=== PATIENT | female | born 1980 | race Caucasian/White ===

== ENCOUNTER 2022-03-11 08:03 | Emergency (ER) | payer BC, SELFPAY ==
[2022-03-11 08:12] VITALS: BP 131/78; PULSE 81; RESP 16; TEMP 36.8; O2SAT 100
--- NOTE | 2022-03-11 08:16 | ED.URI ---
HPI - URI/Sore Throat General Chief Complaint: Upper Respiratory Infection Stated Complaint: sore throat, congestion Time Seen by Provider: 03/11/22 08:16 Source: patient, RN notes reviewed and old records reviewed Mode of arrival: ambulatory Limitations: no limitations History of Present Illness HPI Narrative: 42 year old female who presents to [facility] care stating she had virtual visit with her doctor 2 weeks ago for nasal congestion with green drainage, cough with some expectoration of greenish phlegm and was prescribed nasal spray which did help for about 3 days then symptoms have returned. Patient reports today that she has a sore throat, is hoarse, greenish nasal drainage, ear pressure, cough with also some greenish phlegm. Patient reports that cough is worse at night and she is having difficulty getting any rest, She has been using the nasal spray and also has been taking DayQuil and NyQuil and taking Cortney. Patient has had COVID vaccinations, denies any acute fevers, chills or sweats, denies any body aches. MD elicited complaint: cough, sore throat, rhinorrhea, nasal congestion and other (ear pressure) Onset (ago): week(s) (symptoms greater than 2 weeks) Consistency: progressively worsening Description of mucous: green Related Data Home Medications Medication Instructions Recorded Confirmed ipratropium bromide 2 spray INTRANASAL DAILY 03/11/22 03/11/22 Allergies Allergy/AdvReac Type Severity Reaction Status Date / Time amoxicillin AdvReac Other Verified 03/11/22 08:21 Review of Systems Review of Systems: CONSTITUTIONAL: Denies fever, chills, or sweats. EYES: Denies visual changes, redness, or discharge. ENT: Positive rhinorrhea, congestion, sore throat, and ear pressure. CARDIOVASCULAR: Denies chest pain, palpitations, or edema. RESPIRATORY: Positive cough no dyspnea. GASTROINTESTINAL: Denies abdominal pain, nausea, vomiting, or diarrhea. GENITOURINARY: Denies dysuria or hematuria. SKIN: Denies rash or itching. MUSCULOSKELETAL: Denies back pain, joint pain, or myalgia. NEUROLOGIC: Denies headache, numbness, or weakness. PSYCHIATRIC: Denies anxiety or depression. All systems reviewed & are unremarkable except as noted in HPI and below PMFSH Past Medical History Medical History (Updated 03/12/22 @ 08:03 by Lety Samuel NP) Obesity Surgical History Surgical History (Updated 03/12/22 @ 08:00 by Lety Samuel NP) Previous section X2 S/P foot surgery, left X2 for plantar fasciitis Family History Family History (Updated 03/12/22 @ 08:02 by Lety Samuel NP) Father Hypertension Brain aneurysm Mother Hypertension Sibling Kidney stones Grandparent Abdominal aneurysm Social History Social History (Updated 03/12/22 @ 08:03 by Lety Samuel NP) Smoking status: Never smoker Alcohol intake: current Alcohol use details: rare social Substance use: never Living arrangements: with family Gender identity (if verbalized by the patient): Female Comments At time of signature, agree with nursing past medical, surgical, social and family history. There is no relevant family history pertinent to the presenting complaint Exam Narrative: GENERAL: Well-appearing, well-nourished, and in no acute distress. HEAD: Normocephalic, atraumatic. EYES: PERRLA and EOMI. ENT: Nares red with greenish tinged rhinorrhea no epistaxis. Mucous membranes moist.TM's normal with dull light reflex, throat red with no tonsil swelling or lesions post nasal drainage noted NECK: Supple.no lymphadenopathy CHEST: Clear to auscultation. No respiratory distress.productive cough SAO2 100% on room air, no tachypnea HEART: Regular rate and rhythm. No murmur heard. Normal peripheral pulses. ABDOMEN: Soft, nontender, nondistended, normal active bowel sounds. EXTREMITIES: Normal range of motion. No edema. SKIN: Warm, dry, no rash. NEURO: No focal deficits. Alert and oriented x3. Course Course
== END 2022-03-11 08:43 | disposition home or self-care (01) ==
PROVIDERS: Emergency Provider Registered Nurse
DX: J32.9 Chronic sinusitis, unspecified (principal); R05.9 Cough, unspecified
CPT/HCPCS: 99213; G0463

== ENCOUNTER 2022-03-17 08:43 | Emergency (ER) | payer BC, SELFPAY ==
[2022-03-17 08:48] VITALS: BP 111/79; PULSE 82; RESP 16; TEMP 36.4; O2SAT 100
--- NOTE | 2022-03-17 08:55 | ED.URI ---
HPI - URI/Sore Throat General Chief Complaint: Upper Respiratory Infection Stated Complaint: cough and congestion Time Seen by Provider: 03/17/22 09:00 Source: patient and RN notes reviewed Mode of arrival: ambulatory Limitations: no limitations History of Present Illness HPI Narrative: 42-year-old female presents with concern for ongoing cough, sinus drainage. She reports the cough is dry and persistent. She reports nasal drainage is constant, turn from green to clear after taking the antibiotic. Reports she is on day 7 of the antibiotic, however she is itching. She also reports the guaifenesin with codeine that she was previously prescribed keeps her awake at night. She has not taken it consistently because of this. She reports she continues to use Cortney daily and is using the ipratropium nasal spray as directed. She denies fever, body aches, chills, sweats, shortness of breath. She reports a total of 6 weeks of symptoms. MD elicited complaint: cough and sore throat Related Data Home Medications Medication Instructions Recorded Confirmed ipratropium bromide 2 spray INTRANASAL DAILY 03/11/22 03/17/22 Allergies Allergy/AdvReac Type Severity Reaction Status Date / Time amoxicillin [From Augmentin] AdvReac YEAST Verified 03/17/22 09:10 INFECTION clavulanic acid AdvReac YEAST Verified 03/17/22 09:10 [From Augmentin] INFECTION Review of Systems Review of Systems: CONSTITUTIONAL: Denies malaise, chills, sweats, or fever. EYES: Denies visual changes, redness, or discharge. ENT: Reports rhinorrhea, congestion, postnasal drainage. Denies sinus pain, otalgia and sore throat. CARDIOVASCULAR: Denies chest pain, palpitations, or edema. RESPIRATORY: Reports persistent dry cough. Denies dyspnea. GASTROINTESTINAL: Denies abdominal pain, nausea, vomiting, diarrhea SKIN: Denies rash or itching. MUSCULOSKELETAL: Denies myalgia. NEUROLOGIC: Denies headache. All systems reviewed & are unremarkable except as noted in HPI and below PMFSH Past Medical History Medical History (Updated 03/17/22 @ 09:10 by Kristel Hung NP) Obesity Surgical History Surgical History (Updated 03/12/22 @ 08:00 by Lety Samuel NP) Previous section X2 S/P foot surgery, left X2 for plantar fasciitis Family History Family History (Updated 03/12/22 @ 08:02 by Lety Samuel NP) Father Hypertension Brain aneurysm Mother Hypertension Sibling Kidney stones Grandparent Abdominal aneurysm Social History Social History (Updated 03/12/22 @ 08:03 by Lety Samuel NP) Smoking status: Never smoker Alcohol intake: current Alcohol use details: rare social Substance use: never Gender identity (if verbalized by the patient): Female Comments At time of signature, agree with nursing past medical, surgical, social and family history. There is no relevant family history pertinent to the presenting complaint Exam Narrative: GENERAL: Well-appearing, well-nourished, and in no acute distress. HEAD: Normocephalic EYES: PERRLA, conjunctivae clear ENT: Nares clear, turbinates edematous and erythematous, clear discharge. Mucous membranes moist. TM pearly vital with sharp light reflex bilaterally; no tragal tenderness. Oropharynx not erythematous without lesions. Tonsils not enlarged and without exudate, no drooling, no hoarseness, no trismus, uvula midline. NECK: Supple. No lymphadenopathy CHEST: Clear to auscultation, breath sounds equal. No wheezing, rhonchi, rales, or stridor. No respiratory distress, speaks in full sentences. Continuous dry cough noted HEART: Regular rate and rhythm. No murmur heard. SKIN: Warm, dry, no rash. NEURO: Alert and oriented x3. PSYCH: Normal mood and affect Course Course Emergency Course: Patient is aware of diagnosis, understands and agrees to treatment plan. Anticipatory guidance given. Patient agrees to follow-up as directed and is aware of reasons to seek care at
== END 2022-03-17 09:17 | disposition home or self-care (01) ==
PROVIDERS: Emergency Provider Nurse Practitioner
DX: J32.9 Chronic sinusitis, unspecified (principal); J40 Bronchitis, not specified as acute or chronic; E66.9 Obesity, unspecified; Z68.41 Body mass index [BMI] 40.0-44.9, adult
CPT/HCPCS: 99213; G0463

== ENCOUNTER 2022-05-02 08:35 | Emergency (ER) | payer BC, SELFPAY ==
[2022-05-02 08:42] VITALS: BP 143/90; PULSE 93; RESP 20; TEMP 36.2; O2SAT 100
--- NOTE | 2022-05-02 09:07 | ED.URI ---
HPI - URI/Sore Throat General Chief Complaint: Upper Respiratory Infection Stated Complaint: aung,sore throat Time Seen by Provider: 05/02/22 09:07 Source: patient, RN notes reviewed and old records reviewed Mode of arrival: ambulatory Limitations: no limitations History of Present Illness HPI Narrative: 42-year-old female who presents to [facility] care with complaints of cough, sinus congestion, sinus pressure, some ear pressure, and sore throat for the past 10 days. Patient reports she has taken Zyrtec Mucinex DM and has been using Flonase with no resolution in her symptoms. Patient denies any known fever, no nausea or vomiting, or diarrhea, denies any shortness of breath or any body aches. Patient reports she has had COVID vaccinations has not had flu shot. Patient states some facial pressure denies frontal headache, dizziness or nausea. MD elicited complaint: cough, sore throat, rhinorrhea, nasal congestion and sinus pain Onset (ago): day(s) (10) Pain scale (0-10): 4 Description of mucous: clear Able to tolerate fluids by mouth: Yes Treatments prior to arrival: other (Flonase, Mucinex DM, and Zyrtec) Related Data Allergies Allergy/AdvReac Type Severity Reaction Status Date / Time amoxicillin [From Augmentin] AdvReac Mild YEAST Verified 05/02/22 08:59 INFECTION clavulanic acid AdvReac Mild YEAST Verified 05/02/22 08:59 [From Augmentin] INFECTION Review of Systems Review of Systems: CONSTITUTIONAL: Denies fever, chills, or sweats. EYES: Denies visual changes, redness, or discharge. ENT: Positive rhinorrhea, congestion, sore throat,bilateral ear pressure, facial pressure. CARDIOVASCULAR: Denies chest pain, palpitations, or edema. RESPIRATORY: Positive for cough, denies dyspnea. GASTROINTESTINAL: Denies abdominal pain, nausea, vomiting, or diarrhea. GENITOURINARY: Denies dysuria or hematuria. SKIN: Denies rash or itching. MUSCULOSKELETAL: Denies back pain, joint pain, or myalgia. NEUROLOGIC: Denies headache, numbness, or weakness. PSYCHIATRIC: Denies anxiety or depression. [facility] Past Medical History Medical History (Updated 05/02/22 @ 09:27 by Lety Samuel NP) Obesity Sinusitis Surgical History Surgical History Previous section X2 S/P foot surgery, left X2 for plantar fasciitis Family History Family History Father Hypertension Brain aneurysm Mother Hypertension Sibling Kidney stones Grandparent Abdominal aneurysm Social History Social History Smoking status: Never smoker Alcohol intake: current Alcohol use details: rare social Substance use: never Gender identity (if verbalized by the patient): Female Comments At time of signature, agree with nursing past medical, surgical, social and family history. There is no relevant family history pertinent to the presenting complaint Exam Narrative: GENERAL: Well-appearing, well-nourished, and in no acute distress. HEAD: Normocephalic, atraumatic. EYES: PERRLA and EOMI. ENT: Nares red with clear rhinorrhea no epistaxis. Mucous membranes moist.TM's normal with good light reflex, throat with some redness, no lesions or exudates no tonsil swelling, post nasal drainage noted to back of throat NECK: Supple.no lymphadenopathy CHEST: Clear to auscultation. No respiratory distress.SAO2 100% on room air HEART: Regular rate and rhythm. No murmur heard. Normal peripheral pulses. ABDOMEN: Soft, nontender, nondistended, normal active bowel sounds. EXTREMITIES: Normal range of motion. No edema. SKIN: Warm, dry, no rash. NEURO: No focal deficits. Alert and oriented x3. Course Course Level of Care: Express Care Visit Vital Signs Vital signs: Vital Signs Temperature 36.2 C L 05/02/22 08:42 Pulse Rate 93 05/02/22 08:42 Respiratory Rate 20 05/02/22 08:42 Blood
== END 2022-05-02 09:25 | disposition home or self-care (01) ==
PROVIDERS: Emergency Provider Registered Nurse
DX: J32.9 Chronic sinusitis, unspecified (principal); E66.9 Obesity, unspecified; Z68.41 Body mass index [BMI] 40.0-44.9, adult
CPT/HCPCS: 99213; G0463